=== PATIENT | female | born 1975 | race Caucasian/White ===

== ENCOUNTER → 2019-06-12 | Outpatient (CLI) | payer OTHER ==
[~2019-06-12] VITALS: Ht 162.6 cm; Wt 153.3 kg
[~2019-06-12] MED LIST: AMLODIPINE BESY10 MG PO; ATORVASTATIN CA80 MG PO; BIOTIN10000 MC1 PO; CARVEDILOL25 MG PO; FLONASE 0.05%50 MCG NASAL; FUROSEMIDE 20 M20 MG PO; HYDRALAZINE 5050 MG PO; LEVO-T50 MCG PO; SODIUM BICARBO650 M3 PO; VITAMIN D10000 UNIT PO; ZYRTEC10 M5 PO
--- NOTE | 2019-06-13 16:07 | PATH ---
[facility] [address] [place] [address] PATHOLOGY RPT PROCEDURE Name: ANDREEA BEAN Raquel Room #: REG RIVERA Jono.#: [id number] Admission: 06/12/19 Date of : 71 Discharge: Report #: [id number] Path Case #: [id number] [facility] Accession Number: [id number] . 01 Material submitted: . PART A: stomach - BIOPSY OF GASTRITIS TO R/O H. PYLORI PART B: stomach - POLYP AT ANTRUM . 01 Clinical history: . Pre-OP DX: Dysphagia, GERD Post-OP DX: Gastric polyp, gastritis, esophagitis, dysphagia . 02 Diagnosis: A. Gastric mucosa, gastritis rule out H. pylori, endoscopic biopsy: - Mild chronic gastritis. - Negative for intestinal metaplasia or atrophy. - Negative for Helicobacter pylori (properly controlled immunohistochemical stain performed). . B. Polyp, at antrum, endoscopic biopsy: - Fundic gland polyp. - Negative for dysplasia. . (IUV:chanel; 06/13/2019) QMS 06/13/2019 1114 Local . 02 Electronically signed: . Darya Red MD, Pathologist NPI- [id number] . 01 Gross description: . A. Received in formalin labeled "Andreea Bean, BX of gastritis to rule out H. pylori," are 5 segments of spears soft tissue measuring 1.1 x 0.6 x 0.3 cm in aggregate dimensions and ranging from 0.3 to 0.7 cm in maximum dimension. The specimen is submitted entirely in cassette A1. . B. Received in formalin labeled "Andreea Bean, polyp at antrum," is a 0.8 x 0.8 x 0.6 cm polypoid piece of spears soft tissue with a stalk measuring 0.4 cm in length and 0.3 cm in diameter. The margin of the stalk is inked and the tissue is sectioned perpendicular to the margin and submitted entirely in cassette B1. (TSD; 06/12/2019) TOB/TOB 06/13/2019 1113 Local . 02 Pathologist provided ICD-10: K29.50, K31.7 . 02 [place] [address] PATHOLOGY RPT PROCEDURE Name: ANDREEA BEAN Raquel Room #: REG CLI Michelle#: [id number] Admission: 06/12/19 Date of : 71 Discharge: Report #: [id number] Path Case #: [id number] CPT . 061099, [id number], [id number] Specimen Comment: A courtesy copy of this report has been sent to [phone], [phone] Specimen Comment: [phone] Specimen Comment: Report sent to / DR HOLLAND Performed at: [address] [facility], [place], [place] [id number] MD Lokesh Mccarthy MD Phone: [phone] Performed at: [address] [id number] MD Darya Red MD Phone: [phone]
--- NOTE | 2019-06-16 12:14 | P ---
[facility] [place] [address] PROCEDURE REPORT Name: LINDA BEAN Room #: REG [facility] [id number] Admission: 06/12/19 Attend Phys: Dedrick Valdovinos MD Discharge: Date of : 71 Report #: [id number] THIS REPORT FOR: //name// CC: Dedrick Leal MD DATE OF SERVICE: 06/12/2019 OUTPATIENT UPPER ENDOSCOPY REPORT BRIEF HISTORY: The patient is a 44-year-old woman known to me with recurrent solid food dysphagia. She also has been having issues with cough. PREOPERATIVE DIAGNOSIS: Solid food dysphagia and cough, possibly reflux. POSTOPERATIVE DIAGNOSES: 1. An 8-10 mm benign-appearing antral gastric polyp. 2. Mild diffuse gastritis. 3. Grade A esophagitis. 4. Dysphagia. MEDICATIONS: Deep sedation with propofol per anesthesia. SPECIMENS: 1. Gastric polyp. 2. Biopsies of gastritis. ESTIMATED BLOOD LOSS: 5 mL. PROCEDURE: EGD with snare polypectomy, biopsy and Diana dilation of esophagus. FINDINGS: Prior to propofol sedation, procedure of upper endoscopy was discussed with the patient as well as potential risks and its complications. She indicates she understands and desires to proceed. DESCRIPTION OF PROCEDURE: With the patient in supine position, her head and chest raised about 30-40 degrees, the Olympus video endoscope was inserted in the cervical esophagus under direct vision without difficulty. Examination of this organ through its entire length revealed normal esophageal mucosa down the squamocolumnar junction, a couple of erosions were seen. There was no evidence of Murillo's mucosa. There was no evidence of a hiatus hernia. The scope was advanced in the stomach, was examined on end view as well as retroflexed views. She does have diabetes, but no retained solids or liquids were seen within the stomach. There was mild erythema suggestive of mild esophagitis. No ulcers or [facility] [address] [place] [address] PROCEDURE REPORT Name: LINDA BEAN Room #: REG Delvin Martinez#: [id number] Admission: 06/12/19 Attend Phys: Dedrick Valdovinos MD Discharge: Date of : 71 Report #: [id number] erosions were seen. However, in the very proximal antrum, there was an 8-10 mm sessile benign-appearing polyp on a narrow base. This was the only polyp seen today. Since this was a good sized polyp and the only polyp seen, was removed by cold snare polypectomy. There was slight oozing, so a single hemostatic clip was placed on the polypectomy site with good results. Upon retroflexion, no mass lesions were seen. The pylorus was unremarkable. Duodenal bulb was unremarkable. Duodenal sweep was unremarkable. The duodenal papilla was well seen and noted to be unremarkable. At that point, the scope was slowly withdrawn and careful circumferential views confirmed the above findings. The patient tolerated the procedure well. In addition, biopsies obtained of the gastric mucosa to evaluate for gastritis and H. pylori. A definite stricture or ring was not seen. However, in view of her symptoms, she was dilated with passage of a 52-M[place]ese Diana dilator. There was no resistance. CONDITION OF THE PATIENT UPON DISCHARGE: Following procedure, the patient drowsy. She will be discharged home when fully ambulatory. INSTRUCTIONS TO THE PATIENT AND FAMILY AT THE TIME OF DISCHARGE: As far as dysphagia, I do not see any obvious lesions, which she was dilated empirically and has had success with dilation in the past. She is to return for dilation on an as needed basis. She does have some cough issues. She does have evidence of mild esophagitis. She has significant kidney disease and therefore we will avoid PPIs and have her use famotidine 40 mg twice daily. If those symptoms persist, she will return to see me in followup in the office. We will follow up on the pathology of polyp and make further recommendations as needed. She will return to care of Dr. Daisy Leal and return to see me as needed. <ELECTRONICALLY SIGNED> By: Dedrick Valdovinos MD 06/16/19 1214 1043 [id number] Dedrick Valdovinos MD /nt
== END | disposition home or self-care (01) ==
LOC: GI 00:04
DX: K31.7 Polyp of stomach and duodenum (principal); K29.50 Unspecified chronic gastritis without bleeding; K20.9 Esophagitis, unspecified; R13.19 Other dysphagia; K21.9 Gastro-esophageal reflux disease without esophagitis; I13.2 Hypertensive heart and chronic kidney disease with heart failure and with stage 5 chronic kidney disease, or end stage renal disease; E11.22 Type 2 diabetes mellitus with diabetic chronic kidney disease; N18.5 Chronic kidney disease, stage 5; I50.9 Heart failure, unspecified; E78.00 Pure hypercholesterolemia, unspecified; D64.9 Anemia, unspecified; E03.9 Hypothyroidism, unspecified; Z98.890 Other specified postprocedural states; Z79.899 Other long term (current) drug therapy; Z88.8 Allergy status to other drugs, medicaments and biological substances; Z99.2 Dependence on renal dialysis; Z90.49 Acquired absence of other specified parts of digestive tract
CPT/HCPCS: 62110; 62900